=== PATIENT | male | born 1975 | race Caucasian/White ===

== ENCOUNTER 2024-05-23 19:18 | Emergency (ER) | payer OTHER, SELFPAY ==
[~2024-05-23] VITALS: Ht 185.4 cm; Wt 128.9 kg
[2024-05-23 19:22] VITALS: TEMP 96.6
[2024-05-23] MEDS: BACITRACIN OINTMENT 30GM TUBE TOP ONE (21:50)
[2024-05-23 22:00] VITALS: BP 115/65; O2SAT 97
== END 2024-05-23 22:02 | disposition home or self-care (01) ==
LOC: M ED 19:18
DX: L98.499 Non-pressure chronic ulcer of skin of other sites with unspecified severity (principal); M54.50 Low back pain, unspecified; I10 Essential (primary) hypertension; E78.5 Hyperlipidemia, unspecified; Z96.652 Presence of left artificial knee joint; Z88.6 Allergy status to analgesic agent